=== PATIENT | female | born 1955 | race Hispanic/Latino ===

== ENCOUNTER 2022-07-08 06:36 | Observation (INO) | payer OTHER, MEDICARE ==
[2022-07-03 10:20] LABS: BASOPHILS % (AUTO) 0.3 % (0.0-5.0); EOSINOPHILS % (AUTO) 0.6 % (0.0-8.0); HEMATOCRIT 41.9 % (36-48); LYMPHOCYTES % (AUTO) 21.5 % (21.0-51.0); MEAN CORPUSCULAR HEMOGLOBIN 28.7 pg (27.0-33.0); MEAN CORPUSCULAR HGB CONC 32.2 g/dL (32.0-36.0); MEAN CORPUSCULAR VOLUME 89.1 fL (79-99); MONOCYTES % (AUTO) 8.7 % (3.0-13.0); NEUTROPHILS % (AUTO) 68.5 % (40.0-77.0); PLATELET COUNT (AUTO) 200 K/uL (130-400); RED CELL DISTRIBUTION WIDTH 14.1 % (11.0-15.5); WHITE BLOOD COUNT (AUTO) 7.2 K/uL (4.8-10.8)
[2022-07-03 10:30] LABS: CREATININE 1.1 mg/dL (0.5-1.5); POTASSIUM 3.8 mmol/L (3.5-5.1)
[2022-07-03 10:32] LABS: INR 1.03 (0.85-1.15); PROTHROMBIN TIME 11.2 SEC (9.6-11.6)
[2022-07-03 10:33] LABS: PARTIAL THROMBOPLASTIN TIME 26.7 SEC (26.3-35.5)
[2022-07-03 10:34] VITALS: BP_SYST 161; BP_SYST 181; BP_DIAS 84
[2022-07-08] VITALS (25 sets, daily range): BP systolic 103–169; BP diastolic 47–90
[~2022-07-08] VITALS: Ht 157.5 cm; Wt 124.2 kg
[~2022-07-08 06:36] MED LIST: ALBUMIN (HUMAN) 5% 250 ML IV ONE; ALEN70TA80 PO; ALPR0.255 PO; BUSP30TA2 PO; ERGO500093 PO; HYDR12.54 PO; IRBE300T18 PO; LEVO112C4 PO; METF-444 PO; SERT-440 PO; SIMV-46 PO; SULF500T8 PO
[2022-07-08] MEDS ORDERED: 0.9%NACL 1000ML 1,000 ML IV ONE (06:41)
[2022-07-08] MEDS ORDERED: CEFAZOLIN SODIUM 2 GM VIAL ONE (06:42)
[2022-07-08] MEDS ORDERED: CEFAZOLIN SODIUM 1 GM VIAL ONE (06:42)
[2022-07-08] MEDS ORDERED: LIDOCAINE PF 100MG/5ML (2%) SYRINGE 5ML ONE (07:11)
[2022-07-08] MEDS ORDERED: SUCCINYLCHOLINE CHLORIDE 20 MG/ML 10 ML VIAL ONE (07:11)
[2022-07-08] MEDS ORDERED: GLYCOPYRROLATE 1 MG/5 ML SYRINGE ONE (07:11)
[2022-07-08] MEDS ORDERED: MIDAZOLAM HCL 1 MG/ML 2ML VIAL ONE (07:11)
[2022-07-08] MEDS ORDERED: PROPOFOL 10 MG/ML 20ML VIAL IV ONE ×2 (07:11→09:28)
[2022-07-08] MEDS ORDERED: DEXAMETHASONE SOD PHOSPHATE 10MG/ML 1ML VIAL ONE (07:11)
[2022-07-08] MEDS ORDERED: NEOSTIGMINE 5MG/5ML SYR IV ONE (07:12)
[2022-07-08] MEDS ORDERED: ROCURONIUM 10MG/1ML SYR 10 MG/ML ML ONE (07:12)
[2022-07-08] MEDS ORDERED: FENTANYL CITRATE PF 50 MCG/1 ML 2ML VIAL ONE ×3 (07:12→09:11)
[2022-07-08] MEDS ORDERED: ONDANSETRON 4MG INJ ONE (07:12)
[2022-07-08] MEDS ORDERED: PHENYLEPHRINE HCL 10 MG/ML 1ML VIAL IV ONE (07:19)
[2022-07-08] MEDS ORDERED: NOREPINEPHRINE BITARTRATE 1 MG/1 ML ML IV ONE (07:20)
[2022-07-08] MEDS ORDERED: ALBUMIN (HUMAN) 5% 250 ML IV ONE (07:40)
[2022-07-08] MEDS ORDERED: CEFAZOLIN SODIUM 3 GM VIAL IV ONE (08:22)
[2022-07-08] MEDS ORDERED: EPHEDRINE SULFATE 50 MG/ML AMPULE ONE (09:24)
[2022-07-08 10:20] LABS: HEMATOCRIT 27.9 % (36-48)
[2022-07-08] MEDS ORDERED: MEPERIDINE-PF 25 MG/ML SYG ONE (10:49)
[2022-07-08] MEDS: LACTATED RINGERS 1000ML 1,000 ML IV SCH (17:30)
[2022-07-08] MEDS ORDERED: ACETAMINOPHEN WITH CODEINE 1 TAB TAB PO PRN (19:00)
[2022-07-08] MEDS ORDERED: KETOROLAC 30MG VIAL (30MG/ML) IVP PRN (19:00)
[2022-07-08] MEDS ORDERED: MORPHINE 4 MG SYG IVP PRN (19:00)
[2022-07-08] MEDS: CEFAZOLIN SODIUM 2 GM VIAL IVP SCH (21:38)
[2022-07-09 00:25] VITALS: BP 124/76
[2022-07-09] MEDS: LACTATED RINGERS 1000ML 1,000 ML IV SCH ×2 (00:51→05:18)
[2022-07-09] MEDS: CEFAZOLIN SODIUM 2 GM VIAL IVP SCH ×2 (03:15→11:41)
[2022-07-09 04:11] VITALS: BP 135/54
[2022-07-09 05:15] LABS: BASOPHILS % (AUTO) 0.3 % (0.0-5.0); HEMATOCRIT 27.5 % (36-48); LYMPHOCYTES % (AUTO) 8.9 % (21.0-51.0); MEAN CORPUSCULAR HEMOGLOBIN 28.4 pg (27.0-33.0); MEAN CORPUSCULAR HGB CONC 31.6 g/dL (32.0-36.0); MEAN CORPUSCULAR VOLUME 89.9 fL (79-99); NEUTROPHILS % (AUTO) 79.3 % (40.0-77.0); PLATELET COUNT (AUTO) 152 K/uL (130-400); RED BLOOD CELL COUNT(AUTO) 3.06 MIL/uL (4.00-5.50); RED CELL DISTRIBUTION WIDTH 14.4 % (11.0-15.5)
[2022-07-09 05:40] LABS: ALBUMIN 2.8 g/dL (3.5-5.0); CREATININE 0.9 mg/dL (0.5-1.5); POTASSIUM 3.1 mmol/L (3.5-5.1); TOTAL PROTEIN, SERUM 5.6 g/dL (6.0-8.3)
[2022-07-09 07:30] VITALS: BP 132/54
[2022-07-09] MEDS ORDERED: LEVOTHYROXINE 112 MCG TABLET PO SCH (07:30)
[2022-07-09] MEDS ORDERED: ENOXAPARIN SODIUM 40 MG/0.4 ML SYRINGE SQ SCH (09:00)
[2022-07-09] MEDS ORDERED: ERGOCALCIFEROL (VITAMIN D2) 50,000 UNIT CAPSULE PO SCH (09:00)
[2022-07-09] MEDS ORDERED: ALENDRONATE SODIUM 35 MG TAB PO SCH (09:00)
[2022-07-09] MEDS ORDERED: SERTRALINE HCL 50 MG TABLET PO SCH (09:00)
[2022-07-09] MEDS ORDERED: BUSPIRONE HCL 30 MG PO SCH (09:00)
[2022-07-09] MEDS ORDERED: SULFASALAZINE 500 MG TAB.DR PO SCH (09:00)
[2022-07-09] MEDS ORDERED: LOSARTAN 100 MG TABLET PO SCH (09:00)
[2022-07-09] MEDS ORDERED: ALPRAZOLAM 0.25 MG TABLET PO SCH (09:00)
[2022-07-09] MEDS ORDERED: METFORMIN HCL 500 MG TABLET PO SCH (09:00)
[2022-07-09 11:00] VITALS: BP 137/44
[2022-07-09 15:30] VITALS: BP 102/54
[2022-07-09] MEDS ORDERED: HYDROCHLOROTHIAZIDE 25 MG TABLET PO SCH (21:00)
[2022-07-09] MEDS ORDERED: SIMVASTATIN 20 MG TABLET PO SCH (21:00)
== END 2022-07-09 18:15 | disposition home or self-care (01) ==
LOC: DAH 06:36 → 3AH 06:37 → DAH 06:37 → INTOOBSV 06:37
PROVIDERS: ADMIT Surgery; ATTEND Surgery
DX: M79.3 Panniculitis, unspecified (principal); Z20.822 Contact with and (suspected) exposure to COVID-19; E11.9 Type 2 diabetes mellitus without complications; E66.9 Obesity, unspecified; Z79.84 Long term (current) use of oral hypoglycemic drugs; Z68.43 Body mass index [BMI] 50.0-59.9, adult; Z79.899 Other long term (current) drug therapy; Z98.890 Other specified postprocedural states
CPT/HCPCS: 80048; 85025 ×2; 85610; 85730; 87426; 36415 ×3; 15830; 15847; 96374; 96375; 85014; 85018; 82948 ×4; 96376; 96372; 80053; 97161; 97039 ×2; A4663; A4452; P9045 ×2; J0690 ×6; J7120 ×2; J3010 ×3; J3490 ×3; J1100; J2710; J0330; J7030; J2001; J2250; J2704 ×2; J2405; J2270; J2175; J2370; A4649; A4215; A4223; A4222; A4221; A4600; G0378 ×5; J1650

== ENCOUNTER → 2022-12-27 | Outpatient (CLI) | payer OTHER, MEDICARE ==
[~2022-12-27] MED LIST changes: -ALBUMIN (HUMAN) 5% 250 ML IV ONE; +IOHEXOL 350 MG/ML 100ML INFUS..BTL IV ONE
== END | disposition home or self-care (01) ==
LOC: RAH 09:38
PROVIDERS: ATTEND Surgery
DX: L76.33 Postprocedural seroma of skin and subcutaneous tissue following a dermatologic procedure (principal); Z90.49 Acquired absence of other specified parts of digestive tract
CPT/HCPCS: 74177; Q9967

== ENCOUNTER 2023-01-13 08:28 | Day surgery (SDC) | payer OTHER, MEDICARE ==
[2023-01-08 11:04] LABS: BASOPHILS % (AUTO) 0.5 % (0.0-5.0); EOSINOPHILS % (AUTO) 3.3 % (0.0-8.0); HEMATOCRIT 43.7 % (36-48); LYMPHOCYTES % (AUTO) 27.3 % (21.0-51.0); MEAN CORPUSCULAR HEMOGLOBIN 26.6 pg (27.0-33.0); MEAN CORPUSCULAR HGB CONC 30.7 g/dL (32.0-36.0); MEAN CORPUSCULAR VOLUME 86.9 fL (79-99); MONOCYTES % (AUTO) 7.7 % (3.0-13.0); NEUTROPHILS % (AUTO) 60.9 % (40.0-77.0); PLATELET COUNT (AUTO) 184 K/uL (130-400); RED BLOOD CELL COUNT(AUTO) 5.03 MIL/uL (4.00-5.50); RED CELL DISTRIBUTION WIDTH 23.7 % (11.0-15.5)
[2023-01-08 11:11] LABS: POTASSIUM 4.1 mmol/L (3.5-5.1)
[2023-01-09 12:49] VITALS: BP 139/67
[~2023-01-13] VITALS: Ht 157.5 cm; Wt 113.8 kg
[2023-01-13] VITALS (18 sets, daily range): BP systolic 15–157; BP diastolic 62–89
[~2023-01-13 08:28] MED LIST changes: -ALEN70TA80 PO; +CHOL500051 PO; -ERGO500093 PO; +FERS325 PO; -IOHEXOL 350 MG/ML 100ML INFUS..BTL IV ONE; -IRBE300T18 PO; -LEVO112C4 PO; +LEVO125T11 PO; -METF-444 PO; +SEMA0.258 SQ
[2023-01-13] MEDS ORDERED: 0.9%NACL 1000ML 1,000 ML IV ONE (08:39)
[2023-01-13] MEDS: CEFAZOLIN SODIUM 2 GM VIAL ONE ×2 (09:33→10:00)
[2023-01-13] MEDS ORDERED: LIDOCAINE PF 100MG/5ML (2%) SYRINGE 5ML ONE (09:39)
[2023-01-13] MEDS ORDERED: ROCURONIUM 10MG/1ML SYR 10 MG/ML ML ONE (09:40)
[2023-01-13] MEDS ORDERED: MIDAZOLAM HCL 1 MG/ML 2ML VIAL ONE (09:40)
[2023-01-13] MEDS ORDERED: PROPOFOL 10 MG/ML 20ML VIAL IV ONE (09:40)
[2023-01-13] MEDS ORDERED: FENTANYL CITRATE PF 50 MCG/1 ML 2ML VIAL ONE (09:41)
[2023-01-13] MEDS ORDERED: ONDANSETRON 4MG INJ ONE (10:09)
[2023-01-13] MEDS ORDERED: GLYCOPYRROLATE 1 MG/5 ML SYRINGE ONE (10:32)
[2023-01-13] MEDS ORDERED: NEOSTIGMINE 5MG/5ML SYR IV ONE (10:32)
[2023-01-13] MEDS ORDERED: KETOROLAC 30MG VIAL (30MG/ML) ONE (10:32)
[2023-01-13] MEDS ORDERED: DEXAMETHASONE SOD PHOSPHATE 4 MG/ML 1ML VIAL ONE (10:39)
[2023-01-13] MEDS ORDERED: ROPIVACAINE 0.5% 5MG/ML 30ML IJ ONE (10:40)
[2023-01-13] MEDS ORDERED: SUGAMMADEX SODIUM 200 MG/2 ML VIAL IV ONE (11:28)
== END 2023-01-13 13:15 | disposition home or self-care (01) ==
LOC: DAH 08:28
PROVIDERS: ATTEND Surgery
DX: T81.49XA Infection following a procedure, other surgical site, initial encounter (principal); Z20.822 Contact with and (suspected) exposure to COVID-19; I10 Essential (primary) hypertension; E11.9 Type 2 diabetes mellitus without complications; F32.A Depression, unspecified; F41.9 Anxiety disorder, unspecified; Z98.890 Other specified postprocedural states; Z90.49 Acquired absence of other specified parts of digestive tract; Z90.710 Acquired absence of both cervix and uterus; Z90.89 Acquired absence of other organs; Z98.51 Tubal ligation status; Z98.84 Bariatric surgery status; Z79.899 Other long term (current) drug therapy; Y83.8 Other surgical procedures as the cause of abnormal reaction of the patient, or of later complication, without mention of misadventure at the time of the procedure; Y92.89 Other specified places as the place of occurrence of the external cause
CPT/HCPCS: 87426; 80048; 85025; 36415; 93005; 13160; 64488; 82948 ×2; A6260; J1100; A4663; J3010; J3490; J2710; J7030; J2001; J2250; J2704; J2405; J1885; J2795; J0690; A4215; A4223; A4222; A4221; A4600

== ENCOUNTER → 2023-03-25 | Outpatient (CLI) | payer OTHER, MEDICARE ==
[2023-03-25 13:24] LABS: CREATININE 0.9 mg/dL (0.5-1.5)
== END | disposition home or self-care (01) ==
LOC: LAB 12:27
PROVIDERS: ATTEND Surgery
DX: R10.9 Unspecified abdominal pain (principal)
CPT/HCPCS: 36415; 82565; 84520

== ENCOUNTER → 2023-04-01 | Outpatient (CLI) | payer OTHER, MEDICARE ==
[~2023-04-01] MED LIST changes: +IOHEXOL 350 MG/ML 100ML INFUS..BTL IV ONE
== END | disposition home or self-care (01) ==
LOC: RAH 08:53
PROVIDERS: ATTEND Surgery
DX: R10.9 Unspecified abdominal pain (principal); Z90.49 Acquired absence of other specified parts of digestive tract; Z98.890 Other specified postprocedural states
CPT/HCPCS: 74177; Q9967

== ENCOUNTER → 2023-10-08 | Outpatient (CLI) | payer OTHER, MEDICARE ==
[~2023-10-08] MED LIST changes: -IOHEXOL 350 MG/ML 100ML INFUS..BTL IV ONE
== END | disposition home or self-care (01) ==
LOC: RAH 10:42
PROVIDERS: ATTEND Surgery
DX: K44.9 Diaphragmatic hernia without obstruction or gangrene (principal); R10.9 Unspecified abdominal pain; M47.815 Spondylosis without myelopathy or radiculopathy, thoracolumbar region; I25.10 Atherosclerotic heart disease of native coronary artery without angina pectoris
CPT/HCPCS: 74176